=== PATIENT | female | born 1945 | race Caucasian/White ===

== ENCOUNTER 2025-02-24 15:26 | Outpatient (AMB) | payer MEDICARE, SELFPAY ==
--- OUTSIDE RECORDS SUMMARY | 2024-08-01 16:30 | XMS_ITS ---
Author Organization [facility] Address [address] [place] [address] Care Team Providers Care Supervisor Bridges And Buildings Name Role Phone JUANITO BARRAGAN, JUSOT Primary Care Provider Unavail able Nicholas BARRAGAN, Tima Unavailable Unavailable Migration, Provider Unavailable Unavailable [facility]AS[facility] FOR VISIT [facility] Encounter Medications Medication SIG (Take, Route, Frequency, Duration) Notes Start Date End Date Status Amitriptyline HCl 50 MG 1 tab(s) orally once a day (at bedtime); Duration: 30 day(s) Active Cytoxan 2 G 3 MG/KG INTRAVENOUSLY 1X/W; Duration: 4 WEEK(S) *Please review and pick correct strength-formulati on from Arlettiean options. If intended option is not shown, discontinue and re-order from Quick Search* Active Baclofen 20 MG 1 tab(s) orally TID; Duration: 30 day(s) Active Vitamin E 400 UNIT 2 tabs orally once a day; Duration: 30 day(s) Active Calcium-Vitamin D 600 MG-400 INTL UNITS 1 TAB(S) ORALLY BID; Duration: 30 DAY(S) *Please review and pick correct strength-formulati [facility] from [facility]. If intended option is not shown, discontinue and re-order from Quick Search* Active Mydriacyl 1 % 1 gtt in each eye 1X; Duration: 1 dose(s) Active Lisinopril 10 MG 1 tab(s) orally once a day; Duration: 30 day(s) Active traMADol HCl 50 MG 1 tab(s) orally q 6 hrs/prn; Duration: 7 day(s) Active prednisoLONE Acetate 1 % 1 gtt in each affected eye QID; Duration: 5 day(s) Active Vitamin B1 250 MG 1 TAB(S) ORALLY ONCE A DAY; Duration: 10 DAY(S) *Please review and pick correct strength-formulati on from Medispan options. If intended option is not shown, discontinue and re-order from Quick Search* Active Fish Oil 1000 MG ONE QD *Please review and pick correct strength-formulati on from Medispan options. If intended option is not shown, discontinue and re-order from Quick Search* Active GLUCOSAMINE W/ CHONDROITIN 750/600 2 TABS QD *Please review for potential replacement for e-prescription and drug interaction check* Active Furosemide 20 MG 1 tab(s) orally once a day; Duration: 30 day(s) Active Levoxyl 125 MCG 1 tab(s) orally once a day; Duration: 30 day(s) Active Ibuprofen 600 MG 1 tab(s) orally tid; Duration: 30 day(s) Active Encounters Encounter Location Date Provider Diagnosis [facility] [address] [place] [id number] 08/01/2024 Provider Migration Abdominal pain, LUQ 789.02 Assessments Encounter Date Diagnosis (ICD Code) Assessment Notes Treatment Notes Treatment Clinical Notes Section Notes 08/01/2024 Abdominal pain, LUQ (ICD9-CM - 789.02) Plan Of Treatment Medication Medication Name Sig Start Date Stop Date Notes Amitriptyline HCl 50 MG 1 tab(s) orally once a day (at bedtime); Duration: 30 day(s) Progress Notes * SARA WATERSDOB: [birth year] (79 yo F)Acc No.[id number]:08/01/2024 Patient: SARA BRIGHT Provider: :1945 A ge:79 Y S ex:Female Date:08/01/2024 Address:[address] [facility] [place], [place] Pcp:JUSTO SOLOMON MD Subjective: * Chief Complaints: * 1 . Multum To [facility] Conversion Encounter. * Medical History: * Medications: T aking Baclofen 20 MG Tablet 1 tab(s) orally TID , Taking Calcium-Vitamin D 600 MG-400 INTL UNITS TABLET 1 TAB(S) ORALLY BID , Notes to Pharmacist: *Please review and pick correct strength-formulation from Arlettiespan options. If intended option is not shown, discontinue and re-order from Quick Search*, Taking Cytoxan 2 G POWDER FOR INJECTION 3 MG/KG INTRAVENOUSLY 1X/W , Notes to Pharmacist: *Please review and pick correct strength-formulation from Arlettiespan options. If intended option is not shown, discontinue and re-order from Quick Search*, Taking Fish Oil 1000 MG ONE QD , Notes to Pharmacist: *Please review and pick correct strength-formulation from Arlettiespan options. If intended option is not shown, discontinue and re-order from Quick Search*, Taking Furosemide 20 MG Tablet 1 tab(s) orally once a day , Taking GLUCOSAMINE W/ CHONDROITIN 750/600 2 TABS QD , Notes to Pharmacist: *Please review for potential replacement for e-prescription and drug interaction check*, Taking Ibuprofen 600 MG Tablet 1 tab(s) orally tid , Taking Levoxyl 125 MCG Tablet 1 tab(s) orally once a day , Taking Lisinopril 10 MG Tablet 1 tab(s) orally once a day , Taking Mydriacyl 1 % Solution 1 gtt in each eye 1X , Taking prednisoLONE Acetate 1 % Suspension 1 gtt in each affected eye QID , Taking traMADol HCl 50 MG Tablet 1 tab(s) orally q 6 hrs/prn , Taking Vitamin B1 250 MG TABLET 1 TAB(S) ORALLY ONCE A DAY , Notes to Pharmacist: *Please review and pick correct strength-formulation from Arlettiespan options. If intended option is not shown, discontinue and re-order from Quick Search*, Taking Vitamin E 400 UNIT Capsule 2 tabs orally once a day Objective: * Vitals: Assessment: * Assessment: 1. A bdominal pain, LUQ - 789.02 (Primary) Plan: * Treatment: * * Electronic signature of Prov ider Migration on 02/24/2025 at 06:26 PM EST Sign off status: Pending * Provider: Date: 0 08/01/2024 Generated for Everett emmanuel/Jacquelin/Renetta on: 1 04/27/2024 06:26 PM EST
--- NOTE | 2025-02-24 15:31 | MHC.OFFVIS ---
Intake Visit Reasons: MS Allergies No Known Allergies Allergy (Unverified 12/10/19 15:58) Medication List - Last Reconciled 02/24/25 by Shai Matias MD baclofen 10 mg PO TID fluoxetine 40 mg PO DAILY isosorbide mononitrate ER 30 mg PO DAILY levothyroxine 88 mcg PO DAILY metoprolol succinate ER 12.5 mg PO DAILY oxybutynin chloride ER 10 mg PO BEDTIME pantoprazole 40 mg PO DAILY rosuvastatin 20 mg PO BEDTIME HPI Comments Details: MS is stable with no new MS Sx. Has help in the shower. Gets around in a wheel chair and transfers by herself and furniture walking. Lives with daughter Ni?now. Her memory is stable.? Does some exercises by herself. No new Sx. Mild dysphagia with solids and liquid has resolved.??No falls. Getting bladder infections have not recurred, and has an indwelling catheter. Daughters have set up auto pay and bills. Less anxiety and panic attacks.? Had neuropsych testing in [place] and showed dementia and now no longer drives and has health care proxy. [facility] Medical History (Updated 02/24/25 @ 15:38 by Shai Matias MD) Multiple sclerosis Review of Systems Const Details: ?General/Constitutional:? Change in appetitedenies.? Fatiguedenies.? Feverdenies.? Weight gaindenies.? Weight lossdenies. ???Sleep:? Difficulty getting to sleepdenies.? Difficulty maintaining sleepdenies?.? Daytime sleepinessdenies. ???Respiratory:? Shortness of breathdenies.? Chest paindenies. ???Cardiovascular:? Chest pain at restdenies.? Chest pain with exertiondenies.? Dizzinessdenies.? Fluid accumulation in the legsdenies.? Irregular heartbeatdenies.? Palpitationsdenies. ???Gastrointestinal:? Constipationdenies.? Diarrheadenies.? Difficulty swallowingdenies.? Heartburndenies.? Nauseadenies. ???Genitourinary:? Frequent urinationadmits.? Urgencyadmits.? Incontinencedenies. ???Musculoskeletal:? Neck paindenies.? Back painadmits.? Joint stiffnessdenies.? Sciaticadenies. ???Neurologic:? Difficulty swallowingdenies.? Balance difficultyadmits.? Coordinationnormal.? Difficulty speakingdenies.? Dizzinessdenies.? Faintingdenies.? Gait abnormalityadmits.? Headachedenies.? Loss of strengthdenies.? Loss of use of extremitydenies.? Low back painadmits.? Memory lossdenies.? Seizuresdenies.? Ticsdenies.? Tingling/Numbnessdenies.? Transient loss of visiondenies.? Tremordenies. ???Psychiatric:? Anxietyadmits.? Auditory/visual hallucinationsdenies.? Delusionsdenies.? Depressed mooddenies.? Stressorsadmits.? Suicidal thoughtsdenies. Physical Exam Neuro Other: General Examination: GENERAL APPEARANCE:??normal,?in no acute distress.?HEART:??S1, S2 normal,?no murmurs.?LUNGS:??clear anteriorly and posteriorly.?MUSCULOSKELETAL:??normal.?EXTREMITIES:??Left elbow swelling and tenderness.?.?PSYCH:??alert, oriented,?cognitive function intact,?cooperative with exam.? Neurological: Mental Status:??Normal attention, orientation, memory and affect except date. [facility] . 04/27 recall. does not note the exact date.?Cranial Nerves:??Pupils are equal, round and reactive to light. External occular muscles are intact. Visual mayes are full. Face is symmetrical. Facial sensations are normal. Tongue is midline. Palate elevates symmetrically. Shoulder shrugging is normal. Hearing to bedside conversation is normal.?.?Motor Examination:??DTRs are trace.?.?Sensory Exam:??..?Gait Exam:??In wheel chair.?.?Cerebellar Signs:??[id number] with minimal dysmetria.?Extrapyramidal System:??No tremor, rigidity with normal facial expressions.?Pronator Drift:??not present?.?Involuntary Movements:??No tremors seen?.?Speech:??Normal.? Assessment & Plan Assessment & Plan (1) Multiple sclerosis: Comment: NCV/EMG ALL 10/15/12 NORMAL MOTOR AND SENSORY NERVE CONDUCTION VELOCITIES IN THE UPPER AND LOWER EXTREMITIES, EXCEPT FOR A MILD CARPAL TUNNEL SYNDROME ON THE LEFT. NO SIGNIFICANT CHANGES SINCE LAST NCV DONE 12/19/10. NORMAL EMG IN THE LEFT L4-S1 INNERVATED MUSCLES. 08/16/14 MRI shows multiple old MS plaques in periventricular distribution with no enhancing lesions. Code(s): G35.D - Multiple sclerosis, unspecified Category: Medical Plan increase Baclofen to 10mg bid and then tid as tolerated for leg spasms. Medications: Changed From baclofen 10 mg PO TID To baclofen 10 mg PO TID 270 tabs 3RF 90 days Coding Level of Care Code Tele New Pt Level 4 (04953) Diagnoses Multiple sclerosis G35.D
--- OUTSIDE RECORDS SUMMARY | 2025-02-24 18:27 | XMS_ITS | Clinical Summary ---
Author Organization [facility] Address [address] [place] [address] Care Team Providers Care Lode Miner Blasting Name Role Phone Jailyn Roberto MD Primary Care Provider Social History Tobacco Use Types Packs/Day Years Used Date Smoking Tobacco: Never Assessed Comments Unknown Sex and Gender Information Value Date Recorded Sex Assigned at Not on file Legal Sex Female 11:15 PM EDT Gender Identity Not on file Sexual Orientation Not on file Plan of Treatment Health Maintenance Due Date Last Done Comments Hepatitis C Screening 1945 DTaP/Tdap/Td (1 - Tdap) 1965 Pneumococcal 50+ years (1 of 1 - PCV) 1997 Zoster (Shingrix) (1 of 2) 1997 Bone Density 2012 RSV (1 - 1-dose 75+ series) 2022 COVID-19 Vaccine ( - 2024-2 6 season) 2024 Influenza (#1) 2024 12/26/2020 HPV Vaccine (No Doses Required) Completed Hep A Aged Out No longer eligi ble based on patient's age to complete this topic Hep B Aged Out No longer eligi ble based on patient's age to complete this topic Hib Aged Out No longer eligi ble based on patient's age to complete this topic Mammogram/Breast Imaging Discontinued Meningococcal ACWY Aged Out No longer eligible based on patient's age to complete this topic Pap Smear Discontinued Zoster (Zostavax) Discontinued Insurance MEDICARE PART B Care Teams Lode Miner Blasting Relationship Specialty Start Date End Date Jailyn Roberto MD [address] [place] [phone] PCP - General Family Medicine 07/21/22
--- OUTSIDE RECORDS SUMMARY | 2025-02-24 18:27 | XMS_ITS ---
Author Organization [facility] Care Team Providers Care Counselor Marriage And Family Name Role Phone Stefan Taylor MD Unavailable Unavailable Allergies and adverse reactions Code CodeSystem Substance Reaction Severity StartDate Concern Status Ativan Moderate 05/31/2022 active 7984 RXNORM Penicillin Mild 05/31/2022 active zinc oxide Unknown 05/31/2022 active Care Team Name Role Address Phone Organization Dates Stefan Taylor MD PCP [phone], [place], [place], [place] (Office): : [facility] [place] 05/31/2022 - 06/06/2022 Immunizations Immunization Status Vaccine Details Vaccine Code CodeSystem Date Notes Influenza completed Influenza, adjuvanted, inactivated, quadrivalent, injectable, preservative free 205 CVX created date: 05/31/2022 administere d date: 12/26/2020 Pneumovax Dose 1 completed pneumococcal conjugate vaccine, 13 valent 133 CVX created date: 05/31/2022 administere d date: 07/22/2017 PPV 23 completed pneumococcal polysaccharide vaccine, 23 valent 33 CVX created date: 05/31/2022 administere d date: 12/26/2020 Mental Status Section Date Assessment Total Score Description 06/06/2022 BIMS 15 cognitively int act CAM 0 No delirium ind icated PHQ-9 02 minimal depress ion Insurance Providers Coverage Status Coverage Type Relationship to Subscriber Member Identifier Subscriber Identifier Group Identifier Payer Identifier and Other information Code: 1 Code System OID:[id number] .1.769471.3. 221.5 Code System Name: Source of Payment Typology (PHDSC) Display: Medicare Translation: Code: [place] Code System: OID:[id number] .1.775636.6. 255.1336 Code System Name: Insurance Type Code ([id number]) Display Name: Medicare Part A Code: 349 Code System OID:2.16.840 .1.994131.3. 221.5 Code System Name: Source of Payment Typology (PHDSC) Display: Other Translation: Code: C1 Code System: OID:2.16.840 .1.893206.6. 255.1336 Code System Name: Insurance Type Code ([id number]) Display Name: Commercial Insurance Problems Problem # Description Date of onset Resolved Date Code CodeSystem Concern Status 1 ANEMIA IN CHRONIC KIDNEY DISEASE 06/01/[address] active 2 ATHEROSCLEROTIC HEART DISEASE OF [place] CORONARY ARTERY WITH UNSPECIFIED ANGINA PECTORIS 06/01/[address] active 3 ATHEROSCLEROTIC HEART DISEASE OF [place] CORONARY ARTERY WITHOUT ANGINA PECTORIS 06/01/[address] active 4 BREAKDOWN (MECHANICAL) OF OTHER URINARY CATHETER, SEQUELA 06/01/[address] active 5 CHRONIC KIDNEY DISEASE, STAGE 3 UNSPECIFIED 06/01/[address] active 6 ESSENTIAL (PRIMARY) HYPERTENSION 06/01/[address] active 7 HYPERLIPIDEMIA, UNSPECIFIED 06/01/[address] active 8 HYPOTHYROIDISM, UNSPECIFIED 06/01/[address] active 9 LEFT BUNDLE-BRANCH BLOCK, UNSPECIFIED 06/01/[address] active 10 MILD COGNITIVE IMPAIRMENT OF UNCERTAIN OR UNKNOWN ETIOLOGY 06/01/[address] active 11 MULTIPLE SCLEROSIS 06/01/[address] active 12 NEUROMUSCULAR DYSFUNCTION OF BLADDER, UNSPECIFIED 06/01/[address] active 13 PAIN IN RIGHT LEG [address] active 14 UNSPECIFIED DIASTOLIC (CONGESTIVE) HEART FAILURE 06/01/[address] active 15 UNSPECIFIED FRACTURE OF SHAFT OF RIGHT TIBIA, INITIAL ENCOUNTER FOR CLOSED FRACTURE 06/01/[address] active Reason for Referral No Reasons for Referral Entered Social History Social History Observation Description Start Date End Date Code Code System Current Smoking Status Tobacco smoking consumption unknown 091843580 SNOMED CT Sex Assigned At Female 1945 40127-3 [facility] Gender Identity Female [id number] [address] Sexual Orientation Heterosexual (finding) 05183617 SNOMED CT Vital Signs Code Code System Vitals Name Values and Units Timing Information 15699-4 [facility] Pain Level Value=7.0 06/06/2022 2339-0 [facility] Blood Sugar Xalfh=622.0 Units=mg/dL 06/06/2022 9279-1 [facility] Respiratory Rate Value=18.0 Units=/m in 06/06/2022 8310-5 [facility] Body Temperature Value=97.8 Units= F 06/06/2022 8867-4 [facility] Heart rate Value=71.0 Units=/min 50409-7 [facility] O2 % BldC Oximetry Value=98.0 Units= % 06/06/2022 8462-4 [facility] Blood Pressure-Diastolic Value=74 Un its=mmHg 06/06/2022 8480-6 [facility] Blood Pressure-Systolic Rhewv=616 Un its=mmHg 06/06/2022 8302-2 [facility] Height Value=64.0 Units=Inches 06/01/2022 40259-3 [facility] Weight Iiafr=426.0 Units=Lbs 11/2022
--- OUTSIDE RECORDS SUMMARY | 2025-02-24 18:27 | XMS_ITS | Patient Health Record ---
Author Organization [facility] Address [address] [place] [address] Care Team Providers Care Shirt Bander Name Role Phone JUSTO SOLOMON MD Primary Care Provider Unavail able Tima Peterson MD Unavailable Unavailable Migration, Provider Unavailable Unavailable Reason For Referral No Information Medications Medication SIG (Take, Route, Frequency, Duration) Notes Start Date End Date Status Amitriptyline HCl 50 MG 1 tab(s) orally once a day (at bedtime); Duration: 30 day(s) Active Fish Oil 1000 MG ONE QD *Please review and pick correct strength-formulati on from Rapt Mediaspan options. If intended option is not shown, discontinue and re-order from Quick Search* Active Cytoxan 2 G 3 MG/KG INTRAVENOUSLY 1X/W; Duration: 4 WEEK(S) *Please review and pick correct strength-formulati on from Rapt Mediaspan options. If intended option is not shown, [...] tab(s) orally tid; Duration: 30 day(s) Active Mydriacyl 1 % 1 gtt in each eye 1X; Duration: 1 dose(s) Active Lisinopril 10 MG 1 tab(s) orally once a day; Duration: 30 day(s) Active Baclofen 20 MG 1 tab(s) orally TID; Duration: 30 day(s) Active traMADol HCl 50 MG 1 tab(s) orally q 6 hrs/prn; Duration: 7 day(s) Active prednisoLONE Acetate 1 % 1 gtt in each affected eye QID; Duration: 5 day(s) Active Vitamin E 400 UNIT 2 tabs orally once a day; Duration: 30 day(s) Active Calcium-Vitamin D 600 MG-400 INTL UNITS 1 TAB(S) ORALLY BID; Duration: 30 DAY(S) *Please review and pick correct strength-formulati on from ArchiveSocialan options. If intended option is not shown, discontinue and re-order from Quick Search* Active Vitamin B1 250 MG 1 TAB(S) ORALLY ONCE A DAY; Duration: 10 DAY(S) *Please review and pick correct strength-formulati on from Rapt Mediaspan options. If intended option is not shown, discontinue and re-order from Quick Search* Active Encounters Encounter Location Date Provider Diagnosis [facility] [address] [place] [address] [address] [place] [address] 08/01/2024 Provider Migration Abdominal pain, LUQ 789.02 Assessments Encounter Date Diagnosis (ICD Code) Assessment Notes Treatment Notes Treatment Clinical Notes Section Notes 08/01/2024 Abdominal pain, LUQ (ICD9-CM - 789.02) Plan Of Treatment No Information Insurance Providers Payer Name Payer Address Payer Phone Subscriber Number Group Number Insured Name Patient Relationship to Insured Coverage Start Date Coverage End Date MEDICARE [address] [employer] [address] [id number] JTSARA Toth Self - patient is the insured (DO NOT USE) MEDEX [address] [place] [address] [phone] [id number] Self - patient is the insured Medical (General) History Medical History History ICD Code EGD, normal, date: 2007 Colonoscopy, normal, date: 2006 Multiple Sclerosis Hypertension Hypothyroidism Depression Back pain Degenerative Joint Disease Surgical History Surgery Date(Month/Year) Spinal fusion x 2 Carpal Tunnel Release x 2 Appendectomy Hospitalization History Reason Date(Month/Year) surgeries
--- OUTSIDE RECORDS SUMMARY | 2025-02-24 18:27 | XMS_ITS ---
Author Organization [facility] Care Team Providers Care Edger Operator Name Role Phone Perez Giovany Unavailable Unavailable Allergies and adverse reactions Code CodeSystem Substance Reaction Severity StartDate Concern Status ATIVAN Unknown Unknown active [id number] SNOMED CT Penicillins Moderate 08/28/2017 acti ve Zinc Compounds Moderate 08/28/2017 activ e Care Team Name Role Address Phone Organization Dates Giovany Chris [facility] [address], [place], [address], [place] (Office): : [facility] [place] 03/20/2019 - 03/23/2019 Goals Section Goals Description Status Target Date Health care directives given will be honored daily through next review date Active 06/18/2019 I will be/remain free from c atheter-related trauma through review date. Active 06/18/2019 I will be able to communicat e basic needs on a daily basis through the review date. Active 06/18/2019 I will be able to verbalize/ communicate required assistance post-discharge and the services required to meet needs before discharge. Active 06/18/2019 I will be free of falls with injury through the review date. Active 06/18/2019 I will be/remain free of toña g related complications, including movement disorder, discomfort, hypotension, gait disturbance, constipation/impaction or cognitive/behavioral impairment through review date. Active 06/18/2019 I will demonstrate correct a dministration of medications/administration of medications/treatments. Active 06/18/2019 I will demonstrate the appro priate use of adaptive device(s) to increase ability in (ADL's through the review date. 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 Active 06/18/2019 I will have improved mood st ate: improved mood, improved sleep, through the review date. Active 06/18/2019 I will have intact skin, david e of redness, blisters or discoloration by/through review date. Active 06/18/2019 I will have no gi bleeding through my review nolberto e Active 06/18/2019 I will improve current level of function in ADL's through the review date. Active 06/18/2019 I will maintain my optimum l evel of continence/ dignity and remain free from skin breakdown due to incontinence and brief use through the review date. Active 06/18/2019 I will maintain optimal stat us and quality of life within limitations imposed by Disease process through review date, as evidenced by: Active 06/18/2019 I will not have an interrupt ion in normal activities due to pain through the review date. Active 06/18/2019 I will not have discomfort r elated to side effects of analgesia through the review date. Active 06/18/2019 I will pass soft, formed sto ol every one to three days through the review date. Active 06/18/2019 I will remain free of compli cations or discomfort related to Multiple Sclerosis through review date. Active 06/18/2019 I will show no s/sx of Urinary infection through review date. Active 06/18/2019 I will verbalize adequate re lief of pain or ability to cope with incompletely relieved pain through the review date. Active I will watch TV, socialize w [facility] staff and my roommate as evidenced accepting 1-2 activity visits per week through the review date. Active 06/18/2019 Immunizations Immunization Status Vaccine Details Vaccine Code CodeSystem Nolberto e Notes Influenza cancelled Influenza, high-dose, split virus, quadrivalent, injectable, preservative free 197 CVX created date: 08/30/2017 consent date: 08/30/2017 Prevnar 13 completed pneumococcal conjugate vaccine, 13 valent 133 CVX created date: 08/30/2017 administered date: 04/02/2017 Mental Status Section Date Assessment Total Score Description 03/23/2019 BIMS 13 cognitively int act CAM 0 No delirium ind icated PHQ-9 02 minimal depress ion 09/04/2017 BIMS 15 cognitively int act CAM 0 No delirium ind icated PHQ-9 00 Insurance Providers Coverage Status Coverage Type Relationship to Subscriber Member Identifier Subscriber Identifier Group Identifier Payer Identifier and Other information Code: 1 Code System OID:[email or web address] 0.1.698329. 3.221.5 Code System Name: Source of Payment Typology (PHDSC) Display: Medicare Translation : Code: [place] Code System: OID:[email or web address] 0.1.513506. 6.255.1336 Code System Name: Insurance Type Code ([id number]) Display Name: Medicare Part A Code: 81 Code System OID:[id number] 0.1.100834. 3.221.5 Code System Name: Source of Payment Typology (PHDSC) Display: Self Pay Translation : Code: 09 Code System: OID:[email or web address] 0.1.892506. 6.255.1336 Code System Name: Insurance Type Code ([id number]) Display Name: Self-pay Plan of Treatment Section Interventions Intervention Code Code System Display Name Proposed D ate Problems Problem # Description Date of onset Resolved Date Code CodeSystem Concern Status 1 PRESENCE OF UROGENITAL IMPLANTS [address] active 2 CHRONIC KIDNEY DISEASE, UNSPECIFIED [address] active 3 EPILEPSY, UNSPECIFIED, NOT INTRACTABLE, WITHOUT STATUS EPILEPTICUS [address] active 4 FUNCTIONAL QUADRIPLEGIA [address] active 5 HYPO-OSMOLALITY AND HYPONATREMIA [address] active 6 METABOLIC ENCEPHALOPATHY [address] active 7 TOXIC ENCEPHALOPATHY [address] active 8 UNSPECIFIED DEMENTIA, UNSPECIFIED SEVERITY, WITHOUT BEHAVIORAL DISTURBANCE, PSYCHOTIC DISTURBANCE, MOOD DISTURBANCE, AND ANXIETY [address] active 9 ACUTE KIDNEY FAILURE, UNSPECIFIED [address] active 10 ANEMIA, UNSPECIFIED [address] active 11 ANXIETY DISORDER, UNSPECIFIED [address] active 12 CLUSTER HEADACHE SYNDROME, UNSPECIFIED, NOT INTRACTABLE [address] active 13 HYDRONEPHROSIS WITH RENAL AND URETERAL CALCULOUS OBSTRUCTION [address] active 14 MAJOR DEPRESSIVE DISORDER, RECURRENT, UNSPECIFIED [address] active 15 RETENTION OF URINE, UNSPECIFIED [address] active 16 URINARY TRACT INFECTION, SITE NOT SPECIFIED [address] active 17 AGE-RELATED OSTEOPOROSIS WITHOUT CURRENT PATHOLOGICAL FRACTURE [address] active 18 ESSENTIAL (PRIMARY) HYPERTENSION [address] active 19 HYPERLIPIDEMIA, UNSPECIFIED [address] active 20 HYPOTHYROIDISM, UNSPECIFIED [address] active 21 LOW BACK PAIN [address] active 22 MULTIPLE SCLEROSIS [address] active 23 OTHER INTERVERTEBRAL DISC DEGENERATION, LUMBOSACRAL REGION [address] active 24 UNSPECIFIED MACULAR DEGENERATION [address] active 25 WE[address] active Reason for Referral No Reasons for Referral Entered Social History Social History Observation Description Start Date End Date Code Code System Current Smoking Status Tobacco smoking consumption unknown 632284005 SNOMED CT Sex Assigned At Female 1945 [address]53-6 [facility] Gender Identity Sexual Orientation Vital Signs Code Code System Vitals Name Values and Units Timing Information 9279-1 [facility] Respiratory Rate Value=16.0 Units=/m in 03/22/2019 8462-4 [facility] Blood Pressure-Diastolic Value=88 Un its=mmHg 03/22/2019 8480-6 [facility] Blood Pressure-Systolic Vupip=963 Un its=mmHg 03/22/2019 8310-5 [facility] Body Temperature Value=98.7 Units= F 03/22/2019 8867-4 [facility] Heart rate Value=70.0 Units=/min 99636-5 [facility] O2 % BldC Oximetry Value=93.0 Units= % 03/22/2019 86292-1 [facility] Pain Level Value=0.0 03/22/2019 63102-5 [facility] Weight Zfwxs=026.0 Units=Lbs 02/2018 8302-2 [facility] Height Value=65.0 Units=Inches 06/01/2011
--- OUTSIDE RECORDS SUMMARY | 2025-02-24 18:27 | XMS_ITS | Data Portability ---
Author Organization [place] [facility] Address [address] [place] [address] Care Team Providers Care Blood Bank Laboratory Professional Name Role Phone MARCI MAHER Primary Care Provider [phone] MARCI MAHER Referring Provider Assessment No assessment recorded. Plan of Treatment Reminders Order Date Submit Date Provider Last Modified By Organization Details Last Modified Time Details Appointments None record ed. Lab None record ed. Referral None record ed. Procedures None record ed. Surgeries None record ed. Imaging None record ed. Medication Orders None record ed. Patient TargetsNo targets recorded. Patient InstructionsNo instructions recorded. Reason for Referral None Reported. Results Created Date Observation Date Name Description Value Unit Range Abnormal Flag Note LastModifiedBy Organization Detail LastModifiedTime 06/27/1906/25/2024 elect villa diogr am No observ ation record ed. [facility] [address], [place], [address], 08/03/2024 12:52:50 Result Notes None recorded. Medical Equipment None Reported. Medications Name Sig Start Date Stop Date Status Note LastModified by Organization Details LastModified Time latanoprost 0.005 % eye drops active Not Available Not Available Not Available ketoconazole 2 % shampoo active Not Available Not Available Not Available azithromycin 250 mg tablet active Not Available Not Available No t Available ofloxacin 0.3 % eye drops active Not Available Not Available No t Available metoprolol succinate ER 50 mg tablet,extended release 24 hr active Not Available Not Availabl e Not Available alendronate 70 mg tablet active Not Available Not Available Not Available metronidazole 500 mg tablet active Not Available Not Available No t Available tropicamide 1 % eye drops active Not Available Not Available No t Available Aspir-Low 81 mg tablet,delayed release active Not Available Not Available Not Available ciprofloxacin 500 mg tablet active Not Available Not Available No t Available sulfamethoxazole 800 mg-trimethoprim 160 mg tablet active Not Available Not Availabl e Not Available omeprazole 40 mg capsule,delayed release active Not Available Not Available Not Available tramadol 50 mg tablet active Not Available Not Available Not Available amitriptyline 50 mg tablet active Not Available Not Available No t Available baclofen 20 mg tablet active Not Available Not Available Not Available prednisolone acetate 1 % eye drops,suspension active Not Available Not Avail able Not Available tamsulosin 0.4 mg capsule active Not Available Not Available Not Available levothyroxine 125 mcg tablet active Not Available Not Available N ot Available lisinopril 10 mg tablet active Not Available Not Available Not Available fluoxetine 10 mg capsule active Not Available Not Available Not Available lisinopril 5 mg tablet active Not Available Not Available Not Available furosemide 20 mg tablet active Not Available Not Available Not Available Synthroid 112 mcg tablet active Not Available Not Available Not Available fluocinonide 0.05 % topical solution active Not Available Not Sloane ilable Not Available rosuvastatin 20 mg tablet active Not Available Not Available Not Available nitrofurantoin monohydrate/macroc rystals 100 mg capsule active Not Available Not Available Not Available peg 3350 240 gram-electrolytes 22.72 gram-6.72 g-5.84 g powdr for soln active Not Available Not Available Not Available Vitals None Recorded Social History None recorded. Functional Status None recorded. Mental Status None recorded. Family History Nothing Reported. Medical History No medical history recorded. Gynecological HistoryNo gynecological history recorded. Obstetrics History GPAL:G 0 P 0 0 0 0 Past Encounters Encounter ID Performer Location Encounter Start Date Encounter Closed Date Diagnosis/Indication Diagnosis SNOMED-CT Code Diagnosis ICD10 Code Diagnosis IMO Codes Diagnosis Note [id number] Italo Kuhn MD [address] [place] [address] 11/05/2017 11:14:39 11/05/2017 11:16:58 Health Concerns Section Related Observation LastModified by Organization Detai ls LastModified Time None Recorded Concern Status LastModified by Organization Details LastModified Time None Recorded Advance Directives Directive None Recorded Payers Insurance Date Sequence Insurance Name Policy Number Policy Chambers Covered Member ID Chambers Member ID Guarantor Name 08/18/2024 2 [place] [id number] Liyah Wade [id number] Liyah Wade 08/18/2024 1 [place] [facility] Liyah Wade [id number] Liyah Olsons OBGyn Episode No OBEpisode recorded.
--- OUTSIDE RECORDS SUMMARY | 2025-03-13 19:00 | XMS_ITS | Clinical Summary ---
Author Organization Unknown Care Team Providers Care Pipe Line Gauger Name Role Phone NIKA BARRAGAN, MARCI Unavailable Unavailable KELSEY WITT, ERNESTINE Unavailable Unavailable AIDA GIRARD, GABRIELLE Unavailable Unavailable DESEAN PT, ALINE Unavailable Unavailable [facility] SUBCONTRACTS MANAGER, POONAM Unavailable Unavailable [facility] DIRECTOR, MARKUS Unavailable Unavailable Payers Payer Name Policy Type Policy Number Effective Date Expira tion Date MEDICARE - [facility] - PD [id number] SELF PAY Problems Condition Name Condition Details Condition Category Status Onset Date Resolution Date Last Treatment Date Treating Clinician Comments ENCOUNTER FOR FITTING AND ADJUSTMENT OF URINARY DEVICE Active 2024-03 00:00: 00 RETENTION OF URINE, UNSPECIFIED Active 03-25 00:00: 00 HYPERTENSIVE CHRONIC KIDNEY DISEASE W STG 1-4/UNSP CHR KDNY Active 03-25 00:00: 00 CHRONIC KIDNEY DISEASE, STAGE 3 UNSPECIFIED Active 03-25 00:00: 00 ANEMIA IN CHRONIC KIDNEY DISEASE Active 03-25 00:00: 00 HYPOTHYROIDI SM, UNSPECIFIED Active 03-25 00:00: 00 MULTIPLE SCLEROSIS, UNSPECIFIED Active 03-25 00:00: 00 DEM IN OTHER DIS CLASSD ELSWHR, MILD, W/O BEH/PSYCH/MO OD/ANX Active 03-25 00:00: 00 NEUROMUSCULA R DYSFUNCTION OF BLADDER, UNSPECIFIED Active 03-25 00:00: 00 ATHSCL HEART DISEASE OF [place] CORONARY ARTERY W/O ANG PCTRS Active 03-25 00:00: 00 LEFT BUNDLE-BRANC H BLOCK, UNSPECIFIED Active 03-25 00:00: 00 CORRECTION (CURRENT) USE OF ASPIRIN Active 03-25 00:00: 00 PERSONAL HISTORY OF NICOTINE DEPENDENCE Active 03-25 00:00: 00 PERSONAL HISTORY OF URINARY (TRACT) INFECTIONS Active 03-25 00:00: 00 DEPENDENCE ON WHEELCHAIR Active 03-25 00:00: 00 Problems related to health literacy Active 03-25 00:00: 00 Allergies, Adverse Reactions, Alerts Allergy Name Allergy Type Status Severity Reaction(s) Onset Date Inactive Date Treating Clinician Comments ATIVAN Propensity to adverse reactions Active 2023-01 11:05:1 8 ZINC OXIDE Propensity to adverse reactions Active 2023-01 11:05:2 9 PCNS Propensity to adverse reactions Active 2023-01 11:05:1 0 Medications Ordered Medication Name Filled Medication Name Start Date Stop Date Current Medication? Ordering Clinician Indication Dosage Frequency Signature (SIG) Comments Components sulfamethox azole 800 mg-trimetho prim 160 mg tablet 2022-03 00:00: 00 01-30 23:59 :00 No [id number] 1 tablet 2 TIMES DAILY 1 tablet 2 TIMES DAILY (route: oral) Med Classific ation: Anti-Infe ctive Agents fluoxetine 40 mg capsule 2022-03 00:00: 00 Yes [id number] Per instruc tions ONCE DAILY Per instructio ns ONCE DAILY (route: oral) Med Classific ation: Central Nervous System Agents baclofen 10 mg tablet 2022-03 00:00: 00 Yes [id number] 1 tablet 3 TIMES DAILY 1 tablet 3 TIMES DAILY (route: oral) Med Classific ation: Locomotor System metoprolol succinate ER 25 mg tablet,exte nded release 24 hr 2022-03 00:00: 00 Yes [id number] 1 tablet ONCE A DAY 1 tablet ONCE A DAY (route: oral) Med Classific ation: Cardiovas cular Therapy Agents aspirin 81 mg tablet,chris yed release 2022-03 00:00: 00 Yes [id number] 1 tablet DAILY 1 tablet DAILY (route: oral) Med Classific ation: Hematolog ical Agents isosorbide mononitrate ER 30 mg tablet,exte nded release 24 hr 2022-03 00:00: 00 Yes [id number] 1 tablet DAILY 1 tablet DAILY (route: oral) Med Classific ation: Cardiovas cular Therapy Agents oxybutynin chloride ER 10 mg tablet,exte nded release 24 hr 2022-03 00:00: 00 Yes [id number] 1 tablet DAILY 1 tablet DAILY (route: oral) Med Classific ation: Genitouri nary Therapy rosuvastati n 20 mg tablet 2022-03 00:00: 00 Yes [id number] 1 tablet BEDTIME 1 tablet BEDTIME (route: oral) Med Classific ation: Cardiovas cular Therapy Agents Immunizations Ordered Immunization Name Filled Immunization Name Date Status Comments Refusal Reason INFLUENZA, LAIV (LIVE VIRUS) 2023-01-23 00:00:00 Vital Signs Vital Name Observation Time Observation Value Commen ts Temperature 2025-02-18 10:23:00.000 97.4 [degF] Temperature 2025-02-04 14:33:00.000 97.4 [degF] Temperature 2025-01-21 14:44:00.000 97.4 [degF] Pulse 2025-02-18 10:23:00.000 68 /min Pulse 2025-02-04 14:33:00.000 72 /min Pulse 2025-01-21 14:44:00.000 68 /min O2 Saturation (%) 2025-02-18 10:23:00.000 97 % O2 Saturation (%) 2025-02-04 14:33:00.000 96 % O2 Saturation (%) 2025-01-21 14:44:00.000 96 % Respirations 2025-02-18 10:23:00.000 16 /min Respirations 2025-02-04 14:33:00.000 16 /min Respirations 2025-01-21 14:44:00.000 16 /min Systolic Blood Pressure 2025-02-18 10:23:00.000 122 mm [Hg] Systolic Blood Pressure 2025-02-04 14:33:00.000 132 mm [Hg] Systolic Blood Pressure 2025-01-21 14:44:00.000 128 mm [Hg] Diastolic Blood Pressure 2025-02-18 10:23:00.000 64 mm [Hg] Diastolic Blood Pressure 2025-02-04 14:33:00.000 74 mm [Hg] Diastolic Blood Pressure 2025-01-21 14:44:00.000 76 mm [Hg] Plan of Treatment Planned Activity Planned Date Details Comments Future Scheduled Test SKILLED NU RSE TO EVALUATE PATIENT, IDENTIFY PRIMARY AND CO-MORBID CONDITIONS CODED PER CODING GUIDELINES, AND DEVELOP PATIENT SPECIFIC PLAN OF CARE THAT INCLUDES PATIENT GOAL FOR HOME HEALTH. PLAN OF CARE TO INCLUDE 3 PRN VISIT(S) FOR OASIS DATA COLLECTION/COMPREHENSIVE ASSESSMENT AT TIMEPOINTS PER FEDERAL REGULATIONS. THIS INCLUDES VISITS FOR DA, RECERT, SCIC, AND/OR DC. [code = SKILLED NURSE TO EVALUATE PATIENT, IDENTIFY PRIMARY AND CO-MORBID CONDITIONS CODED PER CODING GUIDELINES, AND DEVELOP PATIENT SPECIFIC PLAN OF CARE THAT INCLUDES PATIENT GOAL FOR HOME HEALTH. PLAN OF CARE TO INCLUDE 3 PRN VISIT(S) FOR OASIS DATA COLLECTION/COMPREHENSIVE ASSESSMENT AT TIMEPOINTS PER FEDERAL REGULATIONS. THIS INCLUDES VISITS FOR DA, RECERT, SCIC, AND/OR DC.] Future Scheduled Test SKILLED NU RSE TO REVIEW PATIENT MEDICATIONS (PRESCRIPTION/OTC). INSTRUCT PATIENT/CAREGIVER ON ALL MEDICATIONS INCLUDING PURPOSE, WHEN TO TAKE, IMPORTANCE OF MEDICATION ADHERENCE, MONITORING OF EFFECTIVENESS, ADVERSE DRUG REACTIONS, POSSIBLE SIDE EFFECTS, AND WHEN TO NOTIFY AGENCY OR PHYSICIAN/PROVIDER OF ANY CONCERNS. [code = SKILLED NURSE TO REVIEW PATIENT MEDICATIONS (PRESCRIPTION/OTC). INSTRUCT PATIENT/CAREGIVER ON ALL MEDICATIONS INCLUDING PURPOSE, WHEN TO TAKE, IMPORTANCE OF MEDICATION ADHERENCE, MONITORING OF EFFECTIVENESS, ADVERSE DRUG REACTIONS, POSSIBLE SIDE EFFECTS, AND WHEN TO NOTIFY AGENCY OR PHYSICIAN/PROVIDER OF ANY CONCERNS.] Future Scheduled Test PATIENT RUBIO S A RISK OF HOSPITALIZATION AND ED USE. SKILLED NURSE TO ESTABLISH SUPPORT MEASURES TO MINIMIZE RISK OF HOSPITALIZATION AND ED USE, AND INSTRUCT PATIENT/CAREGIVER ON METHODS TO REDUCE AVOIDABLE HOSPITALIZATION AND ED USE. [code = PATIENT HAS A RISK OF HOSPITALIZATION AND ED USE. SKILLED NURSE TO ESTABLISH SUPPORT MEASURES TO MINIMIZE RISK OF HOSPITALIZATION AND ED USE, AND INSTRUCT PATIENT/CAREGIVER ON METHODS TO REDUCE AVOIDABLE HOSPITALIZATION AND ED USE.] Future Scheduled Test SKILLED NU RSE TO PERFORM ENVIRONMENTAL SAFETY RISK ASSESSMENT AND FALL RISK ASSESSMENT AND PROVIDE INSTRUCTION TO IMPLEMENT ENVIRONMENTAL SAFETY AND FALL PREVENTION STRATEGIES THROUGHOUT THE CERTIFICATION PERIOD. SKILLED NURSE WILL MAINTAIN SITUATIONAL AWARENESS AND WILL NOTIFY CLINICAL SENIOR DB2 SYSTEMS PROGRAMMER AND PHYSICIAN/PROVIDER WITH ANY CHANGE IN CONDITION. [code = SKILLED NURSE TO PERFORM ENVIRONMENTAL SAFETY RISK ASSESSMENT AND FALL RISK ASSESSMENT AND PROVIDE INSTRUCTION TO IMPLEMENT ENVIRONMENTAL SAFETY AND FALL PREVENTION STRATEGIES THROUGHOUT THE CERTIFICATION PERIOD. SKILLED NURSE WILL MAINTAIN SITUATIONAL AWARENESS AND WILL NOTIFY CLINICAL SENIOR DB2 SYSTEMS PROGRAMMER AND PHYSICIAN/PROVIDER WITH ANY CHANGE IN CONDITION.] Future Scheduled Test SKILLED NU RSE FOR OBSERVATION AND ASSESSMENT OF PATIENT S PAIN LEVEL AND EFFECTIVENESS OF PAIN MANAGEMENT REGIMEN. SKILLED NURSE TO INSTRUCT PATIENT/CAREGIVER REGARDING PHARMACOLOGIC AND NON-PHARMACOLOGIC PAIN CONTROL MEASURES. SKILLED NURSE TO REPORT TO PHYSICIAN IF PAIN LEVEL IS OUTSIDE OF ESTABLISHED PARAMETERS. [code = SKILLED NURSE FOR OBSERVATION AND ASSESSMENT OF PATIENT S PAIN LEVEL AND EFFECTIVENESS OF PAIN MANAGEMENT REGIMEN. SKILLED NURSE TO INSTRUCT PATIENT/CAREGIVER REGARDING PHARMACOLOGIC AND NON-PHARMACOLOGIC PAIN CONTROL MEASURES. SKILLED NURSE TO REPORT TO PHYSICIAN IF PAIN LEVEL IS OUTSIDE OF ESTABLISHED PARAMETERS.] Future Scheduled Test SKILLED NU RSE TO ASSESS PATIENT'S SKIN INTEGRITY AND INSTRUCT PATIENT/CAREGIVER ON MEASURES TO PREVENT PRESSURE ULCERS. [code = SKILLED NURSE TO ASSESS PATIENT'S SKIN INTEGRITY AND INSTRUCT PATIENT/CAREGIVER ON MEASURES TO PREVENT PRESSURE ULCERS.] Future Scheduled Test SKILLED NU RSE TO PROVIDE TEACHING ON SIGNS AND SYMPTOMS AND MANAGEMENT OF HYPERTENSION. [code = SKILLED NURSE TO PROVIDE TEACHING ON SIGNS AND SYMPTOMS AND MANAGEMENT OF HYPERTENSION.] Future Scheduled Test SKILLED NU RSE MAY COLLECT URINE SAMPLE FOR URINE REAGENT STRIP TESTING AND/OR URINALYSIS WITH C S 1-3 PRN IF INDICATED FOR SIGNS AND SYMPTOMS OF UTI. IF REAGENT STRIP TEST IS POSITIVE FOR UTI, SKILLED NURSE TO TAKE URINE SAMPLE TO LAB FOR URINE C S AND REPORT RESULTS TO PHYSICIAN. [code = SKILLED NURSE MAY COLLECT URINE SAMPLE FOR URINE REAGENT STRIP TESTING AND/OR URINALYSIS WITH C S 1-3 PRN IF INDICATED FOR SIGNS AND SYMPTOMS OF UTI. IF REAGENT STRIP TEST IS POSITIVE FOR UTI, SKILLED NURSE TO TAKE URINE SAMPLE TO LAB FOR URINE C S AND REPORT RESULTS TO PHYSICIAN.] Future Scheduled Test SKILLED NU RSE TO INSTRUCT PATIENT/CAREGIVER AND PERFORM CARE AND MANAGEMENT OF INDWELLING URINARY CATHETER. INDWELLING CATHETER INSERTION WITH 18FR FR CATHETER WITH 30 ML BALLOON VIA STERILE TECHNIQUE, CHANGE Q 2 WEEKS AND PRN FOR LEAKING OR MALFUNCTIONING CATHETER. IRRIGATE URINARY CATHETER WITH 30-60CC NORMAL SALINE PRN BLOCKAGE/LEAKAGE, HEAVY SEDIMENT. 1 - 3 PRN LONG TERM VISITS FOR CATHETER CHANGE(S) AND/OR TROUBLESHOOTING. [code = SKILLED NURSE TO INSTRUCT PATIENT/CAREGIVER AND PERFORM CARE AND MANAGEMENT OF INDWELLING URINARY CATHETER. INDWELLING CATHETER INSERTION WITH 18FR FR CATHETER WITH 30 ML BALLOON VIA STERILE TECHNIQUE, CHANGE Q 2 WEEKS AND PRN FOR LEAKING OR MALFUNCTIONING CATHETER. IRRIGATE URINARY CATHETER WITH 30-60CC NORMAL SALINE PRN BLOCKAGE/LEAKAGE, HEAVY SEDIMENT. 1 - 3 PRN LONG TERM VISITS FOR CATHETER CHANGE(S) AND/OR TROUBLESHOOTING.] Future Scheduled Test SKILLED NU RSE TO PERFORM BLADDER IRRIGATION WITH 50CC STERILE WATER PRN [code = SKILLED NURSE TO PERFORM BLADDER IRRIGATION WITH 50CC STERILE WATER PRN] Future Scheduled Test SKILLED NU RSE FOR OBSERVATION AND ASSESSMENT TO IDENTIFY CHANGES ASSOCIATED WITH DX DEMENTIA AND TEACHING RELATED TO SAFETY MEASURES TO PREVENT INJURY, ELOPEMENT RISKS, BEHAVIOR CHANGES, ACTIVITIES, AND ENVIRONMENTAL CHANGES ALL SECONDARY TO IMPAIRED COGNITIVE STATUS. [code = SKILLED NURSE FOR OBSERVATION AND ASSESSMENT TO IDENTIFY CHANGES ASSOCIATED WITH DX DEMENTIA AND TEACHING RELATED TO SAFETY MEASURES TO PREVENT INJURY, ELOPEMENT RISKS, BEHAVIOR CHANGES, ACTIVITIES, AND ENVIRONMENTAL CHANGES ALL SECONDARY TO IMPAIRED COGNITIVE STATUS.] Future Scheduled Test SKILLED NU RSE FOR O/A OF SELF-CARE DEFICITS AND TO PROVIDE TEACHING RELATED TO SAFE PROVISION OF ADLS. [code = SKILLED NURSE FOR O/A OF SELF-CARE DEFICITS AND TO PROVIDE TEACHING RELATED TO SAFE PROVISION OF ADLS.] Future Scheduled Test SKILLED NU RSE FOR O/A AND SKILLED TEACHING RELATED TO SIGNS AND SYMPTOMS OF INFECTION AND INFECTION CONTROL MEASURES. [code = SKILLED NURSE FOR O/A AND SKILLED TEACHING RELATED TO SIGNS AND SYMPTOMS OF INFECTION AND INFECTION CONTROL MEASURES.] Future Scheduled Test SKILLED NU RSE TO INSTRUCT PATIENT/CAREGIVER ON PREVENTION OF SEPSIS, AND SIGNS AND SYMPTOMS OF SEPSIS TO REPORT. [code = SKILLED NURSE TO INSTRUCT PATIENT/CAREGIVER ON PREVENTION OF SEPSIS, AND SIGNS AND SYMPTOMS OF SEPSIS TO REPORT.] Future Scheduled Test SKILLED NU RSE FOR O/A OF MUSCULOSKELETAL STATUS AND TEACHING ON MEASURES TO MANAGE MS AND TO MAINTAIN SAFETY WITH ACTIVITY [code = SKILLED NURSE FOR O/A OF MUSCULOSKELETAL STATUS AND TEACHING ON MEASURES TO MANAGE MS AND TO MAINTAIN SAFETY WITH ACTIVITY] Future Scheduled Test HOME HEALT H AIDE SERVICES FOR ASSISTANCE WITH PERSONAL CARE AND ADL S SECONDARY TO FUNCTIONAL LIMITATIONS [code = HOME HEALTH AIDE SERVICES FOR ASSISTANCE WITH PERSONAL CARE AND ADL S SECONDARY TO FUNCTIONAL LIMITATIONS] Goal 2023-03-21 Patient Goal - GET RID OF IN FECTION Goal 2023-05-23 Patient Goal - NOT TO GET AN YMORE UTI'S Goal 2023-07-19 Patient Goal - REMAIN FREE O F UTIS Goal 2023-09-17 Patient Goal - REMAIN FREE O F UTIS Goal 2023-11-19 Patient Goal - REMAIN FREE O F UTIS Goal 2024-01-17 Patient Goal - R EMAIN FREE OF UTIS STAY HEALTHY Goal 2024-02-14 Patient Goal - R EMAIN FREE OF UTIS STAY HEALTHY Goal 2024-03-16 Patient Goal - TO NOT GET AN YMORE UTIS Goal 2024-05-18 Patient Goal - TO NOT GET AN YMORE UTIS Goal 2024-07-13 Patient Goal - TO NOT GET AN YMORE UTIS Goal 2024-09-15 Patient Goal - REMAIN FREE O F UTIS Goal 2024-11-10 Patient Goal - REMAIN FREE O F UTIS Goal 2025-01-13 Patient Goal - REMAIN FREE O F UTIS Goal Patient Goal - REMAIN FREE O F UTIS Goal Provider Goal - A PLAN OF CARE WILL BE ESTABLISHED THAT MEETS PATIENT'S LONG TERM NEEDS AND INCLUDES PATIENT GOAL FOR HOME HEALTH. Goal Provider Goal - PATIENT/CAREGIVER WILL VERBALIZE UNDERSTANDING OF EDUCATION PROVIDED ON MEDICATIONS BY THE END OF THE CERTIFICATION PERIOD. Goal Provider Goal - PATIENT WILL HAVE SUPPORT MEASURES ESTABLISHED TO PREVENT HOSPITALIZATION AND ED USE AND PATIENT/CAREGIVER WILL VERBALIZE/DEMONSTRATE METHODS TO REDUCE AVOIDABLE HOSPITALIZATION AND ED USE BY END OF EPISODE. Goal Provider Goal - PATIENT/CAREGIVER WILL VERBALIZE/DEMONSTRATE EFFECTIVE ENVIRONMENTAL SAFETY AND FALL PREVENTION STRATEGIES, WILL REMAIN SAFE IN THE COMMUNITY, AND WILL BE FREE OF DANGER TO SELF AND OTHERS THROUGHOUT THE CERTIFICATION PERIOD. Goal Provider Goal - PATIENT/CAREGIVER WILL DEMONSTRATE UNDERSTANDING OF PHARMACOLOGIC AND NONPHARMACOLOGIC PAIN CONTROL MEASURES AND PATIENT WILL HAVE IMPROVEMENT IN PAIN INTERFERING WITH ACTIVITY EVIDENCED BY PAIN AT A LEVEL THAT IS ACCEPTABLE TO THE PATIENT AND PAIN LEVEL WITHIN ESTABLISHED PARAMETERS BY END OF CERTIFICATION PERIOD. Goal Provider Goal - PATIENT/CAREGIVER WILL VERBALIZE UNDERSTANDING OF PRESSURE ULCER PREVENTION BY END OF THE EPISODE. Goal Provider Goal - PATIENT/CAREGIVER WILL VERBALIZE SIGNS AND SYMPTOMS OF HYPERTENSION AND WILL BE ABLE TO DEMONSTRATE ABILITY TO MANAGE EXACERBATION BY END OF THE EPISODE. Goal Provider Goal - URINE SPECIMEN WILL BE OBTAINED PRN FOR SIGNS AND SYMPTOMS OF UTI AND RESULTS WILL BE REPORTED TO PHYSICIAN THROUGHOUT THE CERTIFICATION PERIOD. Goal Provider Goal - PATIENT WILL VERBALIZE TOLERANCE OF CATHETER CHANGE AND KNOWLEDGE OF REQUIRED CARE TO MANAGE INDWELLING URINARY CATHETER WITHOUT COMPLICATIONS BY THE END OF THE CERTIFICATION PERIOD. Goal Provider Goal - PATIENT WILL VERBALIZE TOLERANCE OF BLADDER INSTILLATION/IRRIGATION PRN Goal Provider Goal - PATIENT/CAREGIVER WILL VERBALIZE /DEMONSTRATE APPROPRIATE ENVIRONMENTAL/SAFETY MODIFICATIONS IN RESPONSE TO BEHAVIOR/COGNITIVE CHANGES ASSOCIATED WITH DEMENTIA DIAGNOSIS THROUGHOUT THE CERTIFICATION PERIOD. Goal Provider Goal - PATIENT/CAREGIVER WILL VERBALIZE/DEMONSTRATE UNDERSTANDING OF SAFE PROVISION OF ADLS BY THE END OF THE CERTIFICATION PERIOD. Goal Provider Goal - PATIENT/CAREGIVER WILL VERBALIZE/DEMONSTRATE UNDERSTANDING OF S/S OF INFECTION AND INFECTION CONTROL MEASURES. SIGNS AND SYMPTOMS OF INFECTION WILL BE IDENTIFIED AND PHYSICIAN NOTIFIED FOR PROMPT INTERVENTION THROUGHOUT THE CERTIFICATION PERIOD. Goal Provider Goal - PATIENT WILL BE FREE FROM INFECTION AND PATIENT/CAREGIVER WILL VERBALIZE UNDERSTANDING OF SIGNS AND SYMPTOMS AND METHODS TO PREVENT SEPSIS BY END OF THE EPISODE. Goal Provider Goal - PATIENT/CAREGIVER WILL VERBALIZE/DEMONSTRATE ABILITY TO MANAGE MS MUSCULOSKELETAL DISEASE WHILE MAINTAINING SAFETY THROUGHOUT THE EPISODE. Goal Provider Goal - PATIENT WILL RECEIVE PERSONAL CARE AND ADL ASSISTANCE. Encounters Start Date/Time End Date/Time Encounter Type Admission Type Attending [facility] Care Department Encounter ID Discharge Date Discharge Status Discharge Condition Discharge Reason Percent Goals Met 2025-01-14 00:00:00 2025-03-14 00:00:00 Outpatient RECERTIFIC ATION [facility]ST[facility] [id number] [phone]
== END 2025-02-24 15:49 | disposition home or self-care (01) ==
LOC: HO.HSM 15:26
PROVIDERS: Visit Provider Psychiatry & Neurology Neurology
DX: G35.D Multiple sclerosis, unspecified (principal)
CPT/HCPCS: 99204

== ENCOUNTER → 2025-02-24 15:26 | Outpatient (BNVA) | payer MEDICARE, SELFPAY | PROVIDERS: Visit Provider Psychiatry & Neurology Neurology | DX: G35.D Multiple sclerosis, unspecified (principal) | CPT/HCPCS: 99202 ==